=== PATIENT | male | born 1955 | race Caucasian/White ===

== ENCOUNTER 2016-08-03 02:19 | Emergency (ER) | payer OTHER ==
--- NOTE | 2016-08-03 02:48 | ED ORDER SUMMARY ---
..... Patient: SKY HERR OrderSheet [facility] VisitID: [id number] [address] [place] [address] 61y, M Registration Date/Time: 08/03/2016 ORDER SHEET Weight: 86.1 kg (stated) Allergies: No Known Drug Allergy GENERAL ORDERS: MEDICATION ORDERS: Ceftriaxone IM 250 mg (once now with lidocaine) (02:43 08/03/2016 Rufus Yancey) (Ack 2:44 JQuivey R.N.) (2:53 JQuivey R.N.) Lidocaine Injection 1% (to give with ceftriaxone 5 mL) (02:43 08/03/2016 Rufus Yancey) (Ack 2:44 JQuivey R.N.) IV FLUIDS: ORDER SHEET NOTES: [Electronically signed by Trung Perkins Dr. (02:52 08/03/2016)] [Electronically signed by Claus Velez R.N. (02:54 08/03/2016)] [Electronically locked/signed by Claus Velez R.N. (02:54 08/03/2016)]
--- NOTE | 2016-08-03 02:48 | ED ORDER SUMMARY ---
..... Patient: SKY HERR OrderSheet [facility] VisitID: [id number] [address] [place] [address] 61y, M Registration Date/Time: 08/03/2016 ORDER SHEET Weight: 86.1 kg (stated) Allergies: No Known Drug Allergy GENERAL ORDERS: MEDICATION ORDERS: Ceftriaxone IM 250 mg (once now with lidocaine) (02:43 08/03/2016 Rufus Yancey) (Ack 2:44 JQuivey R.N.) (2:53 JQuivey R.N.) Lidocaine Injection 1% (to give with ceftriaxone 5 mL) (02:43 08/03/2016 Rufus Yancey) (Ack 2:44 JQuivey R.N.) IV FLUIDS: ORDER SHEET NOTES: [Electronically signed by Trung Perkins Dr. (02:52 08/03/2016)] [Electronically signed by Claus Velez R.N. (02:54 08/03/2016)] [Electronically locked/signed by Claus Velez R.N. (02:54 08/03/2016)]
--- NOTE | 2016-08-03 02:48 | ED CLINICAL REPORT ---
Clinical Report - Physicians/Mid Levels [place] [address] [place] [address] 08/03/2016 2:19 Patient: SKY HERR Time Seen: 0230. Arrived- By private vehicle. Historian- patient. HISTORY OF PRESENT ILLNESS Chief Complaint: EARACHE. This started past 24 hours and is still present and worsening. It was gradual in onset and has been constant but is not gone now. Modifying factors- (worse with movement of the jaw. better with rest). Location- right ear. The pain is described as severe. The patient has had ear pain. No nasal discharge or congestion, sinus pressure or recent barotrauma. Similar symptoms previously: Many times. ( Reports having "tubes" in the ear as an adult and having "hundreds" of ear infections). Recent medical care: Not recently seen/assessed. REVIEW OF SYSTEMS No fever or chills. All systems otherwise negative, except as recorded above. PAST HISTORY See nurses notes. SOCIAL HISTORY Smoker- current status unknown. No alcohol use or drug use. No recent travel. Is a local resident. PHYSICAL EXAM Appearance: Alert. No acute distress. Eyes: Eyes normal inspection. No conjunctival findings. ENT: (ight tympanic membrane is collapsed with smallamount of blood noted at the11 o'clock position. No other acute abnormalities noted. External auditory canals normal Bilaterally. No proptosis. No tenderness at the mastoid process. No erythema noted around the ear. No other acute abnormalities noted.). Throat: Pharynx normal. No pharyngeal erythema, mouth ulcerations, tonsillar exudate or peritonsillar mass. The mucous membranes are not dry. Nose: Nose normal. Neck: Normal inspection. Neck supple. CVS: Normal heart rate and rhythm. Respiratory: No respiratory distress. Breath sounds normal. Abdomen: Soft and nontender. Skin: Skin warm and dry. Normal skin color. No rash. Normal skin turgor. PROGRESS AND PROCEDURES Course of Care: he patient is a pleasant 61-year-old male with past medical history significant for frequent otitis media presenting for evaluation of right-sided ear pain. The patient reports gradual onset of right-sided ear pain. On examination there is perforation noted. Because of the patient's history, likely infection noted. Patient is a he improved quickly with a"shot of antibiotics. "Patient is unclear and not sure of the exact antibiotic used at that time. Patient appears nontoxic and in no acute distress. Antibiotics will be providedto the patient. Patient is agreeable to treatment plan. Patient states that naomys had care with Dr. Coronado the ear nose [facility] doctor[facility]door. Patient reports that he will be able to follow up with this doctor for theright-sided ear pain. Discussed the patient workup, diagnosis, home care, follow-up, and return precautions. All questions have been answered. The patient expressed understanding of these instructions and was agreeable to them. Disposition: Discharged. Condition: good. CLINICAL IMPRESSION 08/03/2016 02:25 BP: 130/84. HR: 88. RR: 13. O2 saturation: 99%. Temp: 98.1 F. Pain level now: 5/10. Blood pressure normal. Oxygen saturation normal. Acute serous right otitis media with perforation. INSTRUCTIONS Warnings: GENERAL WARNINGS: Return or contact your physician immediately if your condition worsens or changes unexpectedly, if not improving as expected, or if other problems arise. Specifically return if pain, vomiting, bleeding, breathing difficulty or fever. Your Current Medications: CONTINUE TAKING THE FOLLOWING MEDICATIONS: None*. Prescription Medications: Augmentin 875 mg: take 1 tablet orally every 12 hours for 7 days. No refill. Substitution is permissible. Percocet 5 mg/325 mg: take 1 tablet orally every 6 hours as needed for pain. Dispense ten (10). No refill. Substitution is permissible. Follow-up: Return to the emergency department as needed. Follow up with your doctor in one week. Reason for referral: recheck today's concerns. Summary of care provided to patient via paper. Screening today revealed the patient's blood pressure to be in the normal range. The patient should follow up with a primary care provider for blood pressure management. Understanding of the discharge instructions verbalized by patient. Follow-up with: Sam Coronado MD, ENT, , [facility], [address] [place] [address], [facility], [id number] Follow up in one week. Reason for referral: recheck today's concerns. Summary of care provided to patient via paper. (Electronically signed by Trung Perkins Dr. 08/03/2016 2:52)
--- NOTE | 2016-08-03 02:48 | ED CLINICAL REPORT ---
Clinical Report - Physicians/Mid Levels [place] [address] [place] [address] 08/03/2016 2:19 Patient: SKY HERR Time Seen: 0230. Arrived- By private vehicle. Historian- patient. HISTORY OF PRESENT ILLNESS Chief Complaint: EARACHE. This started past 24 hours and is still present and worsening. It was gradual in onset and has been constant but is not gone now. Modifying factors- (worse with movement of the jaw. better with rest). Location- right ear. The pain is described as severe. The patient has had ear pain. No nasal discharge or congestion, sinus pressure or recent barotrauma. Similar symptoms previously: Many times. ( Reports having "tubes" in the ear as an adult and having "hundreds" of ear infections). Recent medical care: Not recently seen/assessed. REVIEW OF SYSTEMS No fever or chills. All systems otherwise negative, except as recorded above. PAST HISTORY See nurses notes. SOCIAL HISTORY Smoker- current status unknown. No alcohol use or drug use. No recent travel. Is a local resident. PHYSICAL EXAM Appearance: Alert. No acute distress. Eyes: Eyes normal inspection. No conjunctival findings. ENT: (ight tympanic membrane is collapsed with smallamount of blood noted at the11 o'clock position. No other acute abnormalities noted. External auditory canals normal Bilaterally. No proptosis. No tenderness at the mastoid process. No erythema noted around the ear. No other acute abnormalities noted.). Throat: Pharynx normal. No pharyngeal erythema, mouth ulcerations, tonsillar exudate or peritonsillar mass. The mucous membranes are not dry. Nose: Nose normal. Neck: Normal inspection. Neck supple. CVS: Normal heart rate and rhythm. Respiratory: No respiratory distress. Breath sounds normal. Abdomen: Soft and nontender. Skin: Skin warm and dry. Normal skin color. No rash. Normal skin turgor. PROGRESS AND PROCEDURES Course of Care: he patient is a pleasant 61-year-old male with past medical history significant for frequent otitis media presenting for evaluation of right-sided ear pain. The patient reports gradual onset of right-sided ear pain. On examination there is perforation noted. Because of the patient's history, likely infection noted. Patient is a he improved quickly with a"shot of antibiotics. "Patient is unclear and not sure of the exact antibiotic used at that time. Patient appears nontoxic and in no acute distress. Antibiotics will be providedto the patient. Patient is agreeable to treatment plan. Patient states that naomys had care with Dr. Coronado the [facility] doctornext-door. Patient reports that he will be able to follow up with this doctor for theright-sided ear pain. Discussed the patient workup, diagnosis, home care, follow-up, and return precautions. All questions have been answered. The patient expressed understanding of these instructions and was agreeable to them. Disposition: Discharged. Condition: good. CLINICAL IMPRESSION 08/03/2016 02:25 BP: 130/84. HR: 88. RR: 13. O2 saturation: 99%. Temp: 98.1 F. Pain level now: 5/10. Blood pressure normal. Oxygen saturation normal. Acute serous right otitis media with perforation. INSTRUCTIONS Warnings: GENERAL WARNINGS: Return or contact your physician immediately if your condition worsens or changes unexpectedly, if not improving as expected, or if other problems arise. Specifically return if pain, vomiting, bleeding, breathing difficulty or fever. Your Current Medications: CONTINUE TAKING THE FOLLOWING MEDICATIONS: None*. Prescription Medications: Augmentin 875 mg: take 1 tablet orally every 12 hours for 7 days. No refill. Substitution is permissible. Percocet 5 mg/325 mg: take 1 tablet orally every 6 hours as needed for pain. Dispense ten (10). No refill. Substitution is permissible. Follow-up: Return to the emergency department as needed. Follow up with your doctor in one week. Reason for referral: recheck today's concerns. Summary of care provided to patient via paper. Screening today revealed the patient's blood pressure to be in the normal range. The patient should follow up with a primary care provider for blood pressure management. Understanding of the discharge instructions verbalized by patient. Follow-up with: Sam Coronado MD, ENT, , [facility], [address] [place] [address], [facility], [id number] Follow up in one week. Reason for referral: recheck today's concerns. Summary of care provided to patient via paper. (Electronically signed by Trung Perkins Dr. 08/03/2016 2:52)
--- NOTE | 2016-08-03 02:48 | ED NURSING NOTES ---
Clinical Report - Nurses [place] [address] [place] [address] 08/03/2016 2:19 Patient: SKY HERR TRIAGE Triage time 02:26. Acuity: LEVEL 4. Chief Complaint: RIGHT EAR PAIN. 02:30. Alert. SEPSIS SCREEN: Sepsis Screen. Negative (no infection suspected/documented). --02:30 Claus Velez R.N. 02:25 08/03/16. BP: 130/84. HR: 88. RR: 13. O2 saturation: 99%. Temp: 98.1 F (oral). Pain level now: 10/06. --02:30 Claus Velez R.N. Weight: 86.1 kg stated. Height/Length: 72 inches Per Patient. BMI: 25.8. --02:30 Claus Velez R.N. Medications None. --02:27 Claus Velez R.N. Medication/allergy information source: the patient. --02:30 Claus Velez R.N. Allergies No Known Drug Allergy. --02:27 Claus Velez R.N. History Arrived by private vehicle. Historian: patient. Unaccompanied. Primary physician (None). This started yesterday. 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 PAST MEDICAL HX: Immunizations: up-to-date. SOCIAL HX: Current every day light tobacco smoker- less than 1/2 a pack per day. No alcohol use or drug use. No infectious disease exposure. ABUSE ASSESSMENT: No report of abuse. FALL RISK ASSESSMENT: Fall risk assessment completed. No fall risk identified. NUTRITIONAL RISK ASSESSMENT: The nutritional risk assessment revealed no deficiencies. FUNCTIONAL ASSESSMENT: Functional assessment: no impairments noted. LEARNING NEEDS ASSESSMENT: The learning needs assessment revealed no barriers. SKIN INTEGRITY ASSESSMENT: Skin integrity risk assessment completed. No skin integrity risk identified. --02:30 Claus Velez R.N. PROBLEMS: Diabetes Mellitus. Hypertension. Atypical Chest Pain. Palpitations. Hyponatremia. Leukocytosis. Chronic Back Pain. Depression. Pancreatitis. --02:29 Claus Velez R.N. ADDITIONAL SURGERIES: Back Surgery. Cholecystectomy. R leg stent. --02:29 Claus Velez R.N. Interventions ID band on patient. To treatment room. --02:30 Claus Velez R.N. PHYSICAL ASSESSMENT 02:30. Ambulatory to room. GENERAL / NEURO / PSYCH: Alert. HEENT: No facial asymmetry noted. RESPIRATORY: Respirations not labored. SKIN: Skin is warm and dry. --02:30 Claus Velez R.N. NURSING PROGRESS NOTES 02:31. Head of bed elevated. Two patient identifiers checked. Call light placed in reach. Bed placed in lowest position. Brakes of bed on. Patient ready for evaluation- chart flagged. --02:31 Claus Velez R.N. 02:45 08/03/2016 Ceftriaxone IM 250 mg given. Given in the left ventral gluteus. Allergies verified and confirmed 5 rights. --02:53 Claus Velez R.N. 02:53. The patient is calm and resting quietly. GENERAL / NEURO / PSYCH: Alert. Oriented X 4. RESPIRATORY: No respiratory distress. SKIN: Skin is warm and dry. --02:54 Claus Velez R.N. DISPOSITION / DISCHARGE Departure time: 02:54. Condition at departure: stable. No learning barriers present. Discharge instructions provided and reviewed with the patient. Reviewed medication(s) side effects, precautions, dosing and course information. Prescription(s) given to the patient. Patient verbalized understanding. Written instructions provided in [place] Island[place]. The patient was discharged home and unaccompanied at time of discharge. He left the Emergency Department ambulatory and via private vehicle. Patient driving. FALL RISK ASSESSMENT: Fall risk assessment completed. No fall risk identified. --02:54 Claus Velez R.N. Locked/Released at 08/03/2016 2:54 by Claus Velez R.N.
--- NOTE | 2016-08-03 02:48 | ED NURSING NOTES ---
Clinical Report - Nurses [place] [address] [place] [address] 08/03/2016 2:19 Patient: SKY HERR TRIAGE Triage time 02:26. Acuity: LEVEL 4. Chief Complaint: RIGHT EAR PAIN. 02:30. Alert. SEPSIS SCREEN: Sepsis Screen. Negative (no infection suspected/documented). --02:30 Cluas Velez R.N. 02:25 08/03/16. BP: 130/84. HR: 88. RR: 13. O2 saturation: 99%. Temp: 98.1 F (oral). Pain level now: 10/06. --02:30 Claus Velez R.N. Weight: 86.1 kg stated. Height/Length: 72 inches Per Patient. BMI: 25.8. --02:30 Claus Velez R.N. Medications None. --02:27 Claus Velez R.N. Medication/allergy information source: the patient. --02:30 Claus Velez R.N. Allergies No Known Drug Allergy. --02:27 Claus Velez R.N. History Arrived by private vehicle. Historian: patient. Unaccompanied. Primary physician (None). This started yesterday. 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 PAST MEDICAL HX: Immunizations: up-to-date. SOCIAL HX: Current every day light tobacco smoker- less than 1/2 a pack per day. No alcohol use or drug use. No infectious disease exposure. ABUSE ASSESSMENT: No report of abuse. FALL RISK ASSESSMENT: Fall risk assessment completed. No fall risk identified. NUTRITIONAL RISK ASSESSMENT: The nutritional risk assessment revealed no deficiencies. FUNCTIONAL ASSESSMENT: Functional assessment: no impairments noted. LEARNING NEEDS ASSESSMENT: The learning needs assessment revealed no barriers. SKIN INTEGRITY ASSESSMENT: Skin integrity risk assessment completed. No skin integrity risk identified. --02:30 Claus Velez R.N. PROBLEMS: Diabetes Mellitus. Hypertension. Atypical Chest Pain. Palpitations. Hyponatremia. Leukocytosis. Chronic Back Pain. Depression. Pancreatitis. --02:29 Claus Velez R.N. ADDITIONAL SURGERIES: Back Surgery. Cholecystectomy. R leg stent. --02:29 Claus Velez R.N. Interventions ID band on patient. To treatment room. --02:30 Claus Velez R.N. PHYSICAL ASSESSMENT 02:30. Ambulatory to room. GENERAL / NEURO / PSYCH: Alert. HEENT: No facial asymmetry noted. RESPIRATORY: Respirations not labored. SKIN: Skin is warm and dry. --02:30 Claus Velez R.N. NURSING PROGRESS NOTES 02:31. Head of bed elevated. Two patient identifiers checked. Call light placed in reach. Bed placed in lowest position. Brakes of bed on. Patient ready for evaluation- chart flagged. --02:31 Claus Velez R.N. 02:45 08/03/2016 Ceftriaxone IM 250 mg given. Given in the left ventral gluteus. Allergies verified and confirmed 5 rights. --02:53 Claus Velez R.N. 02:53. The patient is calm and resting quietly. GENERAL / NEURO / PSYCH: Alert. Oriented X 4. RESPIRATORY: No respiratory distress. SKIN: Skin is warm and dry. --02:54 Claus Velez R.N. DISPOSITION / DISCHARGE Departure time: 02:54. Condition at departure: stable. No learning barriers present. Discharge instructions provided and reviewed with the patient. Reviewed medication(s) side effects, precautions, dosing and course information. Prescription(s) given to the patient. Patient verbalized understanding. Written instructions provided in [place]. The patient was discharged home and unaccompanied at time of discharge. He left the Emergency Department ambulatory and via private vehicle. Patient driving. FALL RISK ASSESSMENT: Fall risk assessment completed. No fall risk identified. --02:54 Claus Velez R.N. Locked/Released at 08/03/2016 2:54 by Claus Velez R.N.
--- NOTE | 2016-08-03 02:56 | ED DISCHARGE INSTRUCTIONS ---
Patient: SKY HERR General Instructions [facility] VisitID: [id number] [address] [place] [address] 61y, M Registration Date/Time: 08/03/2016 08/03/2016 02:25 BP: 130/84. HR: 88. RR: 13. O2 saturation: 99%. Temp: 98.1 F. Pain level now: 5/10. Blood pressure normal. Oxygen saturation normal. Acute serous right otitis media with perforation. INSTRUCTIONS Warnings: GENERAL WARNINGS: Return or contact your physician immediately if your condition worsens or changes unexpectedly, if not improving as expected, or if other problems arise. Specifically return if pain, vomiting, bleeding, breathing difficulty or fever. Your Current Medications: CONTINUE TAKING THE FOLLOWING MEDICATIONS: None*. Prescription Medications: Augmentin 875 mg: take 1 tablet orally every 12 hours for 7 days. No refill. Substitution is permissible. Percocet 5 mg/325 mg: take 1 tablet orally every 6 hours as needed for pain. Dispense ten (10). No refill. Substitution is permissible. Follow-up: Return to the emergency department as needed. Follow up with your doctor in one week. Reason for referral: recheck today's concerns. Summary of care provided to patient via paper. Screening today revealed the patient's blood pressure to be in the normal range. The patient should follow up with a primary care provider for blood pressure management. Understanding of the discharge instructions verbalized by patient. Follow-up with: Sam Coronado MD, ENT, , [facility], [address] [place] [address], [id number] Follow up in one week. Reason for referral: recheck today's concerns. Summary of care provided to patient via paper. ADDITIONAL INFORMATION Ruptured Eardrum:Infected [Adult] You have an infection of the middle ear (the space behind the eardrum). It can occur as a result of the common cold. This is because congestion can block the internal passage that drains fluid from the middle ear. When the middle ear fills with fluid, bacteria can grow there, causing an infection. If the pressure of air and fluid in the middle ear becomes too high, the eardrum can rupture. Pus or blood will drain out of the ear canal and hearing will decrease. Antibiotics are used to treat this illness. Once the infection is treated the eardrum usually heals completely. Sometimes there is delayed or incomplete healing or continued hearing loss. It is important to have a follow-up exam with an Ear, Nose & Throat doctor. Home Care: Take all antibiotics until they are gone, even though you may feel better after the first few days. You may use acetaminophen (Tylenol) or ibuprofen (Motrin, Advil) to control pain, unless another medicine was prescribed. [NOTE: If you have chronic liver or kidney disease or ever had a stomach ulcer or GI bleeding, talk with your doctor before using these medicines.] (Aspirin should never be used in anyone under 18 years of age who is ill with a fever. It may cause severe liver damage.) Do not let any water get into your ear. Do not apply ear drops into the ear canal unless advised by your doctor. Keep a clean cotton plug loosely in the ear canal to absorb drainage. Change the cotton often to keep it clean. Follow Up with your doctor within the next two weeks or as directed by our staff to ensure that the infection is clearing and the eardrum is healing. A hearing test should be done after the eardrum has healed to be sure your hearing has returned to normal Get Prompt Medical Attention if Any of the Following Occur: Ear pain or fever gets worse or shows no improvement after three days of antibiotic treatment Fever over 100.5F (38.0C) after three days of antibiotic treatment Unusual drowsiness or confusion Headache, neck pain or a stiff neck Convulsions (seizure) Amoxicillin Trihydrate, Clavulanate Potassium Oral tablet What is this medicine? AMOXICILLIN; CLAVULANIC ACID (a mox i ABDIAZIZ in; SIMÓN jacob ic id) is a penicillin antibiotic. It is used to treat certain kinds of bacterial infections. It will not work for colds, flu, or other viral infections. How should I use this medicine? Take this medicine by mouth with a full glass of water. Follow the directions on the prescription label. Take at the start of a meal. Do not crush or chew. If the tablet has a score line, you may cut it in half at the score line for easier swallowing. Take your medicine at regular intervals. Do not take your medicine more often than directed. Take all of your medicine as directed even if you think you are better. Do not skip doses or stop your medicine early. Talk to your paving rammer regarding the use of this medicine in children. Special care may be needed. What side effects may I notice from receiving this medicine? Side effects that you should report to your doctor or health health care law specialist as soon as possible: allergic reactions like skin rash, itching or hives, swelling of the face, lips, or tongue breathing problems dark urine fever or chills, sore throat redness, blistering, peeling or loosening of the skin, including inside the mouth seizures trouble passing urine or change in the amount of urine unusual bleeding, bruising unusually weak or tired white patches or sores in the mouth or throat Side effects that usually do not require medical attention (report to your doctor or health health care law specialist if they continue or are bothersome): diarrhea dizziness headache nausea, vomiting stomach upset vaginal or anal irritation What may interact with this medicine? allopurinol anticoagulants control pills methotrexate probenecid What if I miss a dose? If you miss a dose, take it as soon as you can. If it is almost time for your next dose, take only that dose. Do not take double or extra doses. Where should I keep my medicine? Keep out of the reach of children. Store at room temperature below 25 degrees C (77 degrees F). Keep container tightly closed. Throw away any unused medicine after the expiration date. What should I tell my health care provider before I take this medicine? They need to know if you have any of these conditions: bowel disease, like colitis kidney disease liver disease mononucleosis an unusual or allergic reaction to amoxicillin, penicillin, cephalosporin, other antibiotics, clavulanic acid, other medicines, foods, dyes, or preservatives or trying to get breast-feeding What should I watch for while using this medicine? Tell your doctor or health health care law specialist if your symptoms do not improve. Do not treat diarrhea with over the counter products. Contact your doctor if you have diarrhea that lasts more than 2 days or if it is severe and watery. If you have diabetes, you may get a false-positive result for sugar in your urine. Check with your doctor or health health care law specialist. control pills may not work properly while you are taking this medicine. Talk to your doctor about using an extra method of control. Oxycodone Hydrochloride, Acetaminophen Oral tablet What is this medicine? ACETAMINOPHEN; OXYCODONE (a set a KWAME kenneth fen; ox i KOE done) is a pain reliever. It is used to treat mild to moderate pain. How should I use this medicine? Take this medicine by mouth with a full glass of water. Follow the directions on the prescription label. Take your medicine at regular intervals. Do not take your medicine more often than directed. Talk to your paving rammer regarding the use of this medicine in children. Special care may be needed. Patients over 65 years old may have a stronger reaction and need a smaller dose. What side effects may I notice from receiving this medicine? Side effects that you should report to your doctor or health health care law specialist as soon as possible: allergic reactions like skin rash, itching or hives, swelling of the face, lips, or tongue breathing difficulties, wheezing confusion light headedness or fainting spells severe stomach pain yellowing of the skin or the whites of the eyes Side effects that usually do not require medical attention (report to your doctor or health health care law specialist if they continue or are bothersome): dizziness drowsiness nausea vomiting What may interact with this medicine? alcohol antihistamines barbiturates like amobarbital, butalbital, butabarbital, methohexital, pentobarbital, phenobarbital, thiopental, and secobarbital benztropine drugs for bladder problems like solifenacin, trospium, oxybutynin, tolterodine, hyoscyamine, and methscopolamine drugs for breathing problems like ipratropium and tiotropium drugs for certain stomach or intestine problems like propantheline, homatropine methylbromide, glycopyrrolate, atropine, belladonna, and dicyclomine general anesthetics like etomidate, ketamine, nitrous oxide, propofol, desflurane, enflurane, halothane, isoflurane, and sevoflurane medicines for depression, anxiety, or psychotic disturbances medicines for sleep muscle relaxants naltrexone narcotic medicines (opiates) for pain phenothiazines like perphenazine, thioridazine, chlorpromazine, mesoridazine, fluphenazine, prochlorperazine, promazine, and trifluoperazine scopolamine tramadol trihexyphenidyl What if I miss a dose? If you miss a dose, take it as soon as you can. If it is almost time for your next dose, take only that dose. Do not take double or extra doses. Where should I keep my medicine? Keep out of the reach of children. This medicine can be abused. Keep your medicine in a safe place to protect it from theft. Do not share this medicine with anyone. Selling or giving away this medicine is dangerous and against the law. Store at room temperature between 20 and 25 degrees C (68 and 77 degrees F). Keep container tightly closed. Protect from light. This medicine may cause accidental overdose and if it is taken by other adults, children, or pets. Flush any unused medicine down the toilet to reduce the chance of harm. Do not use the medicine after the expiration date. What should I tell my health care provider before I take this medicine? They need to know if you have any of these conditions: brain tumor Crohn's disease, inflammatory bowel disease, or ulcerative colitis drink more than 3 alcohol containing drinks per day drug abuse or addiction head injury heart or circulation problems kidney disease or problems going to the bathroom liver disease lung disease, asthma, or breathing problems an unusual or allergic reaction to acetaminophen, oxycodone, other opioid analgesics, other medicines, foods, dyes, or preservatives or trying to get breast-feeding What should I watch for while using this medicine? Tell your doctor or health health care law specialist if your pain does not go away, if it gets worse, or if you have new or a different type of pain. You may develop tolerance to the medicine. Tolerance means that you will need a higher dose of the medication for pain relief. Tolerance is normal and is expected if you take this medicine for a long time. Do not suddenly stop taking your medicine because you may develop a severe reaction. Your body becomes used to the medicine. This does NOT mean you are addicted. Addiction is a behavior related to getting and using a drug for a non-medical reason. If you have pain, you have a medical reason to take pain medicine. Your doctor will tell you how much medicine to take. If your doctor wants you to stop the medicine, the dose will be slowly lowered over time to avoid any side effects. You may get drowsy or dizzy. Do not drive, use machinery, or do anything that needs mental alertness until you know how this medicine affects you. Do not stand or sit up quickly, especially if you are an older patient. This reduces the risk of dizzy or fainting spells. Alcohol may interfere with the effect of this medicine. Avoid alcoholic drinks. There are different types of narcotic medicines (opiates) for pain. If you take more than one type at the same time, you may have more side effects. Give your health care provider a list of all medicines you use. Your doctor will tell you how much medicine to take. Do not take more medicine than directed. Call emergency for help if you have problems breathing. The medicine will cause constipation. Try to have a bowel movement at least every 2 to 3 days. If you do not have a bowel movement for 3 days, call your doctor or health health care law specialist. Do not take Tylenol (acetaminophen) or medicines that have acetaminophen with this medicine. Too much acetaminophen can be very dangerous. Many nonprescription medicines contain acetaminophen. Always read the labels carefully to avoid taking more acetaminophen. You have been given the following additional information: Ruptured Tm, Infected (Adult) Amoxicillin Trihydrate, Clavulanate Potassium Oral tablet Oxycodone Hydrochloride, Acetaminophen Oral tablet (Electronically signed by Trung Perkins Dr. 08/03/2016 2:52)
--- NOTE | 2016-08-03 02:56 | ED MED RECONCILIATION SUMMARY ---
Patient: SKY HERR Medication Reconciliation Report [facility] VisitID: [id number] [address] [place] [address] 61y, M Registration Date/Time: 08/03/2016 Weight: 86.1 kg Height/Length: 72 in. BMI: 25.8 ALLERGIES: No Known Drug Allergy The patient's Home Medications are listed below: NONE. The source(s) of the original Home Medication information: patient The following Medications were given to the patient in the Emergency Department: Ceftriaxone [IM] IM 250 mg, administered: 08/03/2016 2:45:00 AM The following Medications were prescribed to the patient: Augmentin 875 mg: take 1 tablet orally every 12 hours for 7 days. No refill. Substitution is permissible. -- Trung Perkins Dr. Percocet 5 mg/325 mg: take 1 tablet orally every 6 hours as needed for pain. Dispense ten (10). No refill. Substitution is permissible. -- Trung Perkins Dr.
--- NOTE | 2016-08-03 02:56 | ED MAR SUMMARY ---
..... Medication Administration Record Merged With [facility] [address] [place] [address] Patient: SKY HERR Visit ID: [id number] 61y, M Weight: 86.1 kg Height/Length: 72 in BMI: 25.8 ALLERGIES: No Known Drug Allergy Given 02:45 08/03/2016 Claus Velez R.N. Medication Administered: CEFTRIAXONE [IM], Dose: 250 mg IM. Medication Ordered: Ceftriaxone IM 250 mg (once now with lidocaine).
--- NOTE | 2016-08-03 02:56 | ED MED RECONCILIATION SUMMARY ---
Patient: SKY HERR Medication Reconciliation Report [facility] VisitID: [id number] [address] [place] [address] 61y, M Registration Date/Time: 08/03/2016 Weight: 86.1 kg Height/Length: 72 in. BMI: 25.8 ALLERGIES: No Known Drug Allergy The patient's Home Medications are listed below: NONE. The source(s) of the original Home Medication information: patient The following Medications were given to the patient in the Emergency Department: Ceftriaxone [IM] IM 250 mg, administered: 08/03/2016 2:45:00 AM The following Medications were prescribed to the patient: Augmentin 875 mg: take 1 tablet orally every 12 hours for 7 days. No refill. Substitution is permissible. -- Trung Perkins Dr. Percocet 5 mg/325 mg: take 1 tablet orally every 6 hours as needed for pain. Dispense ten (10). No refill. Substitution is permissible. -- Trung Perkins Dr.
--- NOTE | 2016-08-03 02:56 | ED DISCHARGE INSTRUCTIONS ---
Patient: SKY HERR General Instructions Located Within [facility] VisitID: [id number] [address] [place] [address] 61y, M Registration Date/Time: 08/03/2016 08/03/2016 02:25 BP: 130/84. HR: 88. RR: 13. O2 saturation: 99%. Temp: 98.1 F. Pain level now: 5/10. Blood pressure normal. Oxygen saturation normal. Acute serous right otitis media with perforation. INSTRUCTIONS Warnings: GENERAL WARNINGS: Return or contact your physician immediately if your condition worsens or changes unexpectedly, if not improving as expected, or if other problems arise. Specifically return if pain, vomiting, bleeding, breathing difficulty or fever. Your Current Medications: CONTINUE TAKING THE FOLLOWING MEDICATIONS: None*. Prescription Medications: Augmentin 875 mg: take 1 tablet orally every 12 hours for 7 days. No refill. Substitution is permissible. Percocet 5 mg/325 mg: take 1 tablet orally every 6 hours as needed for pain. Dispense ten (10). No refill. Substitution is permissible. Follow-up: Return to the emergency department as needed. Follow up with your doctor in one week. Reason for referral: recheck today's concerns. Summary of care provided to patient via paper. Screening today revealed the patient's blood pressure to be in the normal range. The patient should follow up with a primary care provider for blood pressure management. Understanding of the discharge instructions verbalized by patient. Follow-up with: Sam Coronado MD, ENT, , [facility], [address] [place] [address], [id number] Follow up in one week. Reason for referral: recheck today's concerns. Summary of care provided to patient via paper. ADDITIONAL INFORMATION Ruptured Eardrum:Infected [Adult] You have an infection of the middle ear (the space behind the eardrum). It can occur as a result of the common cold. This is because congestion can block the internal passage that drains fluid from the middle ear. When the middle ear fills with fluid, bacteria can grow there, causing an infection. If the pressure of air and fluid in the middle ear becomes too high, the eardrum can rupture. Pus or blood will drain out of the ear canal and hearing will decrease. Antibiotics are used to treat this illness. Once the infection is treated the eardrum usually heals completely. Sometimes there is delayed or incomplete healing or continued hearing loss. It is important to have a follow-up exam with an Ear, Nose & Throat doctor. Home Care: Take all antibiotics until they are gone, even though you may feel better after the first few days. You may use acetaminophen (Tylenol) or ibuprofen (Motrin, Advil) to control pain, unless another medicine was prescribed. [NOTE: If you have chronic liver or kidney disease or ever had a stomach ulcer or GI bleeding, talk with your doctor before using these medicines.] (Aspirin should never be used in anyone under 18 years of age who is ill with a fever. It may cause severe liver damage.) Do not let any water get into your ear. Do not apply ear drops into the ear canal unless advised by your doctor. Keep a clean cotton plug loosely in the ear canal to absorb drainage. Change the cotton often to keep it clean. Follow Up with your doctor within the next two weeks or as directed by our staff to ensure that the infection is clearing and the eardrum is healing. A hearing test should be done after the eardrum has healed to be sure your hearing has returned to normal Get Prompt Medical Attention if Any of the Following Occur: Ear pain or fever gets worse or shows no improvement after three days of antibiotic treatment Fever over 100.5F (38.0C) after three days of antibiotic treatment Unusual drowsiness or confusion Headache, neck pain or a stiff neck Convulsions (seizure) Amoxicillin Trihydrate, Clavulanate Potassium Oral tablet What is this medicine? AMOXICILLIN; CLAVULANIC ACID (a mox i ABDIAZIZ in; SIMÓN jacob ic id) is a penicillin antibiotic. It is used to treat certain kinds of bacterial infections. It will not work for colds, flu, or other viral infections. How should I use this medicine? Take this medicine by mouth with a full glass of water. Follow the directions on the prescription label. Take at the start of a meal. Do not crush or chew. If the tablet has a score line, you may cut it in half at the score line for easier swallowing. Take your medicine at regular intervals. Do not take your medicine more often than directed. Take all of your medicine as directed even if you think you are better. Do not skip doses or stop your medicine early. Talk to your photograph enlarger regarding the use of this medicine in children. Special care may be needed. What side effects may I notice from receiving this medicine? Side effects that you should report to your doctor or health home care physical therapist as soon as possible: allergic reactions like skin rash, itching or hives, swelling of the face, lips, or tongue breathing problems dark urine fever or chills, sore throat redness, blistering, peeling or loosening of the skin, including inside the mouth seizures trouble passing urine or change in the amount of urine unusual bleeding, bruising unusually weak or tired white patches or sores in the mouth or throat Side effects that usually do not require medical attention (report to your doctor or health home care physical therapist if they continue or are bothersome): diarrhea dizziness headache nausea, vomiting stomach upset vaginal or anal irritation What may interact with this medicine? allopurinol anticoagulants control pills methotrexate probenecid What if I miss a dose? If you miss a dose, take it as soon as you can. If it is almost time for your next dose, take only that dose. Do not take double or extra doses. Where should I keep my medicine? Keep out of the reach of children. Store at room temperature below 25 degrees C (77 degrees F). Keep container tightly closed. Throw away any unused medicine after the expiration date. What should I tell my health care provider before I take this medicine? They need to know if you have any of these conditions: bowel disease, like colitis kidney disease liver disease mononucleosis an unusual or allergic reaction to amoxicillin, penicillin, cephalosporin, other antibiotics, clavulanic acid, other medicines, foods, dyes, or preservatives or trying to get breast-feeding What should I watch for while using this medicine? Tell your doctor or health home care physical therapist if your symptoms do not improve. Do not treat diarrhea with over the counter products. Contact your doctor if you have diarrhea that lasts more than 2 days or if it is severe and watery. If you have diabetes, you may get a false-positive result for sugar in your urine. Check with your doctor or health home care physical therapist. control pills may not work properly while you are taking this medicine. Talk to your doctor about using an extra method of control. Oxycodone Hydrochloride, Acetaminophen Oral tablet What is this medicine? ACETAMINOPHEN; OXYCODONE (a set a KWAME kenneth fen; ox i KOE done) is a pain reliever. It is used to treat mild to moderate pain. How should I use this medicine? Take this medicine by mouth with a full glass of water. Follow the directions on the prescription label. Take your medicine at regular intervals. Do not take your medicine more often than directed. Talk to your photograph enlarger regarding the use of this medicine in children. Special care may be needed. Patients over 65 years old may have a stronger reaction and need a smaller dose. What side effects may I notice from receiving this medicine? Side effects that you should report to your doctor or health home care physical therapist as soon as possible: allergic reactions like skin rash, itching or hives, swelling of the face, lips, or tongue breathing difficulties, wheezing confusion light headedness or fainting spells severe stomach pain yellowing of the skin or the whites of the eyes Side effects that usually do not require medical attention (report to your doctor or health home care physical therapist if they continue or are bothersome): dizziness drowsiness nausea vomiting What may interact with this medicine? alcohol antihistamines barbiturates like amobarbital, butalbital, butabarbital, methohexital, pentobarbital, phenobarbital, thiopental, and secobarbital benztropine drugs for bladder problems like solifenacin, trospium, oxybutynin, tolterodine, hyoscyamine, and methscopolamine drugs for breathing problems like ipratropium and tiotropium drugs for certain stomach or intestine problems like propantheline, homatropine methylbromide, glycopyrrolate, atropine, belladonna, and dicyclomine general anesthetics like etomidate, ketamine, nitrous oxide, propofol, desflurane, enflurane, halothane, isoflurane, and sevoflurane medicines for depression, anxiety, or psychotic disturbances medicines for sleep muscle relaxants naltrexone narcotic medicines (opiates) for pain phenothiazines like perphenazine, thioridazine, chlorpromazine, mesoridazine, fluphenazine, prochlorperazine, promazine, and trifluoperazine scopolamine tramadol trihexyphenidyl What if I miss a dose? If you miss a dose, take it as soon as you can. If it is almost time for your next dose, take only that dose. Do not take double or extra doses. Where should I keep my medicine? Keep out of the reach of children. This medicine can be abused. Keep your medicine in a safe place to protect it from theft. Do not share this medicine with anyone. Selling or giving away this medicine is dangerous and against the law. Store at room temperature between 20 and 25 degrees C (68 and 77 degrees F). Keep container tightly closed. Protect from light. This medicine may cause accidental overdose and if it is taken by other adults, children, or pets. Flush any unused medicine down the toilet to reduce the chance of harm. Do not use the medicine after the expiration date. What should I tell my health care provider before I take this medicine? They need to know if you have any of these conditions: brain tumor Crohn's disease, inflammatory bowel disease, or ulcerative colitis drink more than 3 alcohol containing drinks per day drug abuse or addiction head injury heart or circulation problems kidney disease or problems going to the bathroom liver disease lung disease, asthma, or breathing problems an unusual or allergic reaction to acetaminophen, oxycodone, other opioid analgesics, other medicines, foods, dyes, or preservatives or trying to get breast-feeding What should I watch for while using this medicine? Tell your doctor or health home care physical therapist if your pain does not go away, if it gets worse, or if you have new or a different type of pain. You may develop tolerance to the medicine. Tolerance means that you will need a higher dose of the medication for pain relief. Tolerance is normal and is expected if you take this medicine for a long time. Do not suddenly stop taking your medicine because you may develop a severe reaction. Your body becomes used to the medicine. This does NOT mean you are addicted. Addiction is a behavior related to getting and using a drug for a non-medical reason. If you have pain, you have a medical reason to take pain medicine. Your doctor will tell you how much medicine to take. If your doctor wants you to stop the medicine, the dose will be slowly lowered over time to avoid any side effects. You may get drowsy or dizzy. Do not drive, use machinery, or do anything that needs mental alertness until you know how this medicine affects you. Do not stand or sit up quickly, especially if you are an older patient. This reduces the risk of dizzy or fainting spells. Alcohol may interfere with the effect of this medicine. Avoid alcoholic drinks. There are different types of narcotic medicines (opiates) for pain. If you take more than one type at the same time, you may have more side effects. Give your health care provider a list of all medicines you use. Your doctor will tell you how much medicine to take. Do not take more medicine than directed. Call emergency for help if you have problems breathing. The medicine will cause constipation. Try to have a bowel movement at least every 2 to 3 days. If you do not have a bowel movement for 3 days, call your doctor or health home care physical therapist. Do not take Tylenol (acetaminophen) or medicines that have acetaminophen with this medicine. Too much acetaminophen can be very dangerous. Many nonprescription medicines contain acetaminophen. Always read the labels carefully to avoid taking more acetaminophen. You have been given the following additional information: Ruptured Tm, Infected (Adult) Amoxicillin Trihydrate, Clavulanate Potassium Oral tablet Oxycodone Hydrochloride, Acetaminophen Oral tablet (Electronically signed by Trung Perkins Dr. 08/03/2016 2:52)
--- NOTE | 2016-08-03 02:56 | ED MAR SUMMARY ---
..... Medication Administration Record [facility] [address] [place] [address] Patient: SKY HERR Visit ID: [id number] 61y, M Weight: 86.1 kg Height/Length: 72 in BMI: 25.8 ALLERGIES: No Known Drug Allergy Given 02:45 08/03/2016 Claus Velez R.N. Medication Administered: CEFTRIAXONE [IM], Dose: 250 mg IM. Medication Ordered: Ceftriaxone IM 250 mg (once now with lidocaine).
== END 2016-08-03 02:54 | disposition home or self-care (01) ==
LOC: ED SRH 02:19
DX: H65.01 Acute serous otitis media, right ear (principal); H72.91 Unspecified perforation of tympanic membrane, right ear; E11.9 Type 2 diabetes mellitus without complications; I10 Essential (primary) hypertension; F17.210 Nicotine dependence, cigarettes, uncomplicated